=== PATIENT | female | born 1930 | race Caucasian/White ===

== ENCOUNTER 2017-12-22 10:50 | Observation (INO) ==
[~2017-12-22 10:50] MED LIST: DIAZEPAM 5 MG TABLET PO ONE; ceFAZolin 1,000 MG VIAL IRRIG ONE; ceFAZolin 1,000 MG in SYRINGE 1 EACH IV ONE; diphenhydrAMINE CAP 25 MG CAPSULE PO ONE
[2017-12-22] MEDS ORDERED: ceFAZolin 1,000 MG VIAL ONE (13:59)
[2017-12-22] MEDS ORDERED: MIDAZOLAM 2 MG/2 ML VIAL ONE (13:59)
[2017-12-22] MEDS ORDERED: fentaNYL 100 MCG/2 ML VIAL ONE (13:59)
[2017-12-22] MEDS ORDERED: LIDOCAINE 1% 20 ML VIAL ONE (13:59)
[2017-12-22] MEDS ORDERED: diphenhydrAMINE 50 MG/1 ML VIAL ONE (14:17)
[2017-12-22] MEDS ORDERED: HYDROmorphone 2 MG/1 ML VIAL ONE (14:45)
[2017-12-22] MEDS ORDERED: TISSUE ADHESIVE 1 EACH APPLICATOR TOP ONE (15:11)
[2017-12-22] MEDS ORDERED: ALUMINUM/MAGNES/SIMETH MAX STR 30 ML UDCUP PO PRN (15:39)
[2017-12-22] MEDS ORDERED: MAGNESIUM HYDROXIDE SUSP 30 ML UDCUP PO PRN (18:23)
[2017-12-22] MEDS ORDERED: ONDANSETRON 4 MG/2 ML VIAL IV PRN (18:23)
[2017-12-22] MEDS ORDERED: diphenhydrAMINE CAP 25 MG CAPSULE PO PRN (18:23)
[2017-12-22] MEDS: SODIUM CHLORIDE 0.9% 1,000 ML IV SCH ×2 (19:13)
[2017-12-22] MEDS: POTASSIUM CHLORIDE 8 MEQ CAPSULE PO SCH (20:38)
[2017-12-22] MEDS: ASPIRIN EC 81 MG TABLET PO SCH (20:42)
[2017-12-22] MEDS: ZALEPLON 5 MG CAPSULE PO PRN (20:42)
[2017-12-23] MEDS ORDERED: MORPHINE 4 MG/1 ML VIAL IV PRN (02:00)
[2017-12-23] MEDS ORDERED: KETOROLAC 30 MG/1 ML VIAL IV ONE (02:30)
[2017-12-23] MEDS ORDERED: HYDROmorphone 2 MG/1 ML VIAL IV ONE (03:52)
[2017-12-23] MEDS ORDERED: METOPROLOL TARTRATE 25 MG TABLET PO ONE (04:00)
[2017-12-23] MEDS: LEVOTHYROXINE 50 MCG TABLET PO SCH (06:06)
[2017-12-23] MEDS: VALSARTAN 160 MG TABLET PO SCH (09:43)
[2017-12-23] MEDS: POTASSIUM CHLORIDE 8 MEQ CAPSULE PO SCH ×2 (09:44→21:35)
[2017-12-23] MEDS: hydroCHLOROthiazide 12.5 MG CAPSULE PO SCH (09:44)
[2017-12-23] MEDS: FENOFIBRATE 145 MG TABLET PO SCH (09:44)
[2017-12-23] MEDS: PANTOPRAZOLE 40 MG TABLET PO SCH (09:44)
[2017-12-23] MEDS: amLODIPine 5 MG TABLET PO SCH (09:45)
[2017-12-23] MEDS: FUROSEMIDE 40 MG TABLET PO SCH (09:45)
[2017-12-23] MEDS: GABAPENTIN 100 MG CAPSULE PO SCH ×3 (09:45→17:43)
[2017-12-23] MEDS ORDERED: DIAZEPAM 5 MG TABLET PO ONE (09:46)
[2017-12-23] MEDS ORDERED: diphenhydrAMINE CAP 25 MG CAPSULE PO ONE (09:46)
[2017-12-23] MEDS ORDERED: ceFAZolin 1,000 MG VIAL IRRIG ONE (09:46)
[2017-12-23] MEDS: FERROUS SULFATE 325 MG TABLET PO SCH (09:46)
[2017-12-23] MEDS ORDERED: SODIUM CHLORIDE 0.9% 1,000 ML IV SCH ×2 (10:00)
[2017-12-23] MEDS ORDERED: TISSUE ADHESIVE 1 EACH APPLICATOR TOP ONE (11:06)
[2017-12-23] MEDS ORDERED: LIDOCAINE 1% 20 ML VIAL ONE (11:07)
[2017-12-23] MEDS ORDERED: ceFAZolin 1,000 MG VIAL ONE ×2 (11:08→11:18)
[2017-12-23] MEDS ORDERED: fentaNYL 100 MCG/2 ML VIAL ONE (11:08)
[2017-12-23] MEDS ORDERED: MIDAZOLAM 2 MG/2 ML VIAL ONE (11:08)
[2017-12-23] MEDS: ASPIRIN EC 81 MG TABLET PO SCH (21:35)
[2017-12-24] MEDS: ZALEPLON 5 MG CAPSULE PO PRN (00:30)
[2017-12-24] MEDS: LEVOTHYROXINE 50 MCG TABLET PO SCH (06:31)
[2017-12-24] MEDS: VALSARTAN 160 MG TABLET PO SCH (09:55)
[2017-12-24] MEDS: FENOFIBRATE 145 MG TABLET PO SCH (09:55)
[2017-12-24] MEDS: POTASSIUM CHLORIDE 8 MEQ CAPSULE PO SCH (09:56)
[2017-12-24] MEDS: hydroCHLOROthiazide 12.5 MG CAPSULE PO SCH (09:56)
[2017-12-24] MEDS: GABAPENTIN 100 MG CAPSULE PO SCH (09:57)
[2017-12-24] MEDS: FUROSEMIDE 40 MG TABLET PO SCH (09:58)
[2017-12-24] MEDS: FERROUS SULFATE 325 MG TABLET PO SCH (09:59)
[2017-12-24] MEDS: PANTOPRAZOLE 40 MG TABLET PO SCH (09:59)
[2017-12-24] MEDS: amLODIPine 5 MG TABLET PO SCH (10:18)
[2017-12-24 11:31] VITALS: BP 190/86
== END 2017-12-24 12:31 | disposition home or self-care (01) ==
LOC: N.CL 10:50 → N.2W 10:50 → N.CL 10:57 → N.2W 16:02 → N.TELEN 17:30
PROVIDERS: ADMIT Internal Medicine Cardiovascular Disease; ATTEND Internal Medicine Cardiovascular Disease